=== PATIENT | female | born 1990 | race Hispanic/Latino ===

== ENCOUNTER 2017-09-19 22:53 | Emergency (ER) | payer MEDICAID, OTHER ==
[2017-09-19] MEDS ORDERED: ONDANSETRON ODT 4 MG TAB ONE (23:25)
[2017-09-19 23:34] LABS: APPEARANCE,URINE Clear (CLEAR); BILIRUBIN,URINE Negative (NEGATIVE); COLOR,URINE Yellow (YELLOW); GLUCOSE, URINE (UA) Negative (NEGATIVE); KETONES,URINE Negative (NEGATIVE); LEUKOCYTE ESTERASE ,URINE Trace (NEGATIVE); NITRATE,URINE Negative (NEGATIVE); OCCULT BLOOD,URINE Negative (NEGATIVE); PROTEIN,URINE Negative (NEGATIVE); UROBILINOGEN,URINE 0.2 mg/dL (0.2-1.0)
[2017-09-19 23:45] LABS: BACTERIA,URINE Few /HPF (None Seen); MUCUS,URINE Moderate LPF (None Seen); RBC,URINE None Seen /HPF (0-1); SQUAMOUS EPITHELIAL CELL,UR Moderate /LPF (0-2)
[2017-09-19 23:46] LABS: HCG,QUAL RESULT NEGATIVE (NEGATIVE)
== END 2017-09-20 00:52 | disposition home or self-care (01) ==
LOC: EDH 22:53
DX: K52.9 Noninfective gastroenteritis and colitis, unspecified (principal)
CPT/HCPCS: 81001; 81025

== ENCOUNTER 2021-12-13 21:04 | Emergency (ER) | payer BC ==
[~2021-12-13] VITALS: Ht 160 cm; Wt 75.7 kg
[2021-12-13 21:08] VITALS: BP 110/77
[2021-12-13] MEDS ORDERED: ONDANSETRON 4MG TABLET PO SCH (21:30)
[2021-12-13 21:34] LABS: BASOPHILS % (AUTO) 0.2 % (0.0-5.0); HEMATOCRIT 39.7 % (36-48); LYMPHOCYTES % (AUTO) 29.7 % (21.0-51.0); MEAN CORPUSCULAR HEMOGLOBIN 30.1 pg (27.0-33.0); MEAN CORPUSCULAR HGB CONC 34.8 g/dL (32.0-36.0); MEAN CORPUSCULAR VOLUME 86.7 fL (79-99); NEUTROPHILS % (AUTO) 59.9 % (40.0-77.0); PLATELET COUNT (AUTO) 195 K/uL (130-400); RED BLOOD CELL COUNT(AUTO) 4.58 MIL/uL (4.00-5.50); RED CELL DISTRIBUTION WIDTH 13.3 % (11.0-15.5); WHITE BLOOD COUNT (AUTO) 8.1 K/uL (4.8-10.8)
[2021-12-13 21:35] LABS: APPEARANCE,URINE CLOUDY (CLEAR); BILIRUBIN,URINE NEGATIVE (NEGATIVE); COLOR,URINE YELLOW (YELLOW); GLUCOSE, URINE (UA) NEGATIVE (NEGATIVE); KETONES,URINE NEGATIVE (NEGATIVE); LEUKOCYTE ESTERASE ,URINE MODERATE (NEGATIVE); NITRATE,URINE NEGATIVE (NEGATIVE); OCCULT BLOOD,URINE TRACE-INTACT (NEGATIVE); PROTEIN,URINE NEGATIVE (NEGATIVE)
[2021-12-13 21:41] LABS: HCG,QUAL RESULT POSITIVE (NEGATIVE)
[2021-12-13 21:43] LABS: CREATININE 0.6 mg/dL (0.5-1.5); POTASSIUM 4.4 mmol/L (3.5-5.1)
[2021-12-13 21:47] LABS: ALBUMIN 3.8 g/dL (3.5-5.0); BILIRUBIN,TOTAL 0.2 mg/dL (0.2-1.0); TOTAL PROTEIN, SERUM 7.5 g/dL (6.0-8.3)
[2021-12-13 21:48] LABS: BACTERIA,URINE Few /HPF (None Seen); MUCUS,URINE Few LPF (None Seen); SQUAMOUS EPITHELIAL CELL,UR Moderate /HPF (0-2)
[2021-12-13] MEDS ORDERED: PREN1COM14 PO (21:51)
[2021-12-13] MEDS ORDERED: CEPH500B PO (21:51)
[2021-12-13] MEDS ORDERED: ONDA4TAB10 PO (21:51)
[2021-12-13] MEDS ORDERED: LIDOCAINE HCL-MPF 1% 2ML VIAL ONE (21:58)
[2021-12-13] MEDS ORDERED: CEFTRIAXONE 1G VIAL IM SCH (22:00)
== END 2021-12-13 22:10 | disposition home or self-care (01) ==
LOC: EDH 21:04
DX: O23.41 Unspecified infection of urinary tract in pregnancy, first trimester (principal); O21.8 Other vomiting complicating pregnancy; Z3A.01 Less than 8 weeks gestation of pregnancy; Z79.899 Other long term (current) drug therapy
CPT/HCPCS: 36415; 80053; 81001; 81025; 83690; 85025; 87088; 96372; 99284; J0696; J3490; Q0162

== ENCOUNTER 2021-12-17 10:46 | Inpatient (IN) | payer BC ==
[~2021-12-17] VITALS: Ht 160 cm; Wt 74.8 kg
[~2021-12-17 10:46] MED LIST: CEPH500B PO; ONDA4TAB10 PO; PREN1COM14 PO
[2021-12-17 11:13] LABS: BASOPHILS % (AUTO) 0.4 % (0.0-5.0); HEMATOCRIT 38.7 % (36-48); LYMPHOCYTES % (AUTO) 21.3 % (21.0-51.0); MEAN CORPUSCULAR HGB CONC 35.1 g/dL (32.0-36.0); MEAN CORPUSCULAR VOLUME 85.4 fL (79-99); MONOCYTES % (AUTO) 6.1 % (3.0-13.0); NEUTROPHILS % (AUTO) 71.9 % (40.0-77.0); PLATELET COUNT (AUTO) 191 K/uL (130-400); RED BLOOD CELL COUNT(AUTO) 4.53 MIL/uL (4.00-5.50); RED CELL DISTRIBUTION WIDTH 13.2 % (11.0-15.5); WHITE BLOOD COUNT (AUTO) 7.7 K/uL (4.8-10.8)
[2021-12-17 11:26] LABS: CREATININE 0.6 mg/dL (0.5-1.5); POTASSIUM 3.6 mmol/L (3.5-5.1)
[2021-12-17 11:30] LABS: APPEARANCE,URINE Turbid (CLEAR); BILIRUBIN,URINE Negative (NEGATIVE); COLOR,URINE Yellow (YELLOW); GLUCOSE, URINE (UA) Negative (NEGATIVE); KETONES,URINE 15 mg/dL (NEGATIVE); LEUKOCYTE ESTERASE ,URINE Large (NEGATIVE); NITRATE,URINE Negative (NEGATIVE); OCCULT BLOOD,URINE Negative (NEGATIVE); PROTEIN,URINE Trace mg/dL (NEGATIVE)
[2021-12-17 11:46] LABS: BACTERIA,URINE Few /HPF (None Seen); RBC,URINE 0-1 /HPF (0-1)
[2021-12-17 11:52] LABS: ALBUMIN 3.7 g/dL (3.5-5.0); BILIRUBIN,TOTAL 0.3 mg/dL (0.2-1.0); TOTAL PROTEIN, SERUM 7.4 g/dL (6.0-8.3)
[2021-12-17] MEDS ORDERED: AMPICILLIN 2GM+NS 100ML IV ONE (15:00)
[2021-12-17 15:30] VITALS: BP 110/62
[2021-12-17] MEDS: DEXTROSE 5 %-0.45 % NACL 1,000 ML IV SCH (16:26)
[2021-12-17] MEDS ORDERED: PROMETHAZINE HCL 25 MG/ML 1ML AMPULE IM PRN (16:30)
[2021-12-17] MEDS ORDERED: MEPERIDINE-PF 50 MG/ML SYG IVP PRN (16:30)
[2021-12-17 20:12] VITALS: BP 95/65
[2021-12-17] MEDS: AMPICILLIN 2GM+NS 100ML 100 ML IV SCH (22:07)
[2021-12-17] MEDS ORDERED: AMPICILLIN 2GM VIAL IV SCH (23:00)
[2021-12-17 23:54] VITALS: BP 97/53
[2021-12-18] MEDS: DEXTROSE 5 %-0.45 % NACL 1,000 ML IV SCH (00:09)
[2021-12-18] MEDS: AMPICILLIN 2GM+NS 100ML 100 ML IV SCH (03:59)
[2021-12-18 04:07] VITALS: BP 91/53
[2021-12-18] MEDS ORDERED: MACR100 PO ×2 (06:50→06:51)
== END 2021-12-18 08:25 | disposition home or self-care (01) | DRG 833 ==
LOC: EDH 10:46 → EDHIP 13:57 → WSH 15:51
PROVIDERS: ADMIT Obstetrics & Gynecology; ATTEND Obstetrics & Gynecology
DX: O23.41 Unspecified infection of urinary tract in pregnancy, first trimester (principal); Z3A.01 Less than 8 weeks gestation of pregnancy
CPT/HCPCS: 36415; 76770; 76801; 80053; 81001; 84702; 85025; 86900; 86901; G0378; J0290; J2175; J2550